=== PATIENT | male | born 1985 | race Caucasian/White ===

== ENCOUNTER 2024-11-24 08:33 | Emergency (ER) | payer BC, SELFPAY ==
[2024-11-24 08:38] VITALS: BP 134/84; PULSE 82; RESP 14; TEMP 36.7; O2SAT 98
--- NOTE | 2024-11-24 08:39 | ED.GENADUL_ITS ---
Discharge Plan Disposition Patient Disposition: Home Discharge Details Clinical Impression: Cellulitis of left leg Primary Care Provider: Mabel Suarez ED Provider: Robert Gee Home Meds and New Rx's Prescriptions: New cephalexin 500 mg capsule 500 mg PO QID 5 Days Qty: 20 0RF Continued lisinopril 20 mg Tablet 20 mg PO DAILY Discontinued allopurinol 100 mg Tablet 100 mg PO DAILY colchicine 0.6 mg Capsule 0.6 mg PO BID prednisone 10 mg tablet 10 mg PO DAILY Patient Comments: TAKE 4 TABLETS BY MOUTH DAILY FOR 3 DAYS, THEN 3 TABLETS DAILY FOR 3 DAYS, THEN 2 TABLETS DAILY FOR 3 DAYS, THEN 1 TABLET DAILY FOR 3 DAYS Discharge Instructions Instructions: Cellulitis (Skin Infection), Adult ED Additional Instructions: You were seen in the emergency department for your ankle pain and swelling. Your joint tap showed some signs of inflammation but no signs of an infected joint. We are concerned that you have a skin infection for which you are receiving antibiotics that you should take as directed. You may discontinue your allopurinol, your colchicine, and your prednisone. Please follow-up with the podiatry team in the next 1 to 2 weeks. As we discussed if you develop fevers cannot take your antibiotics as result of nausea or vomiting or if you have any other concerns please return to the emergency department. Stand Alone Forms: Work Release Referrals: Loulou Cordova DPM [[facility] STAFF PHYSICIAN] - HPI General Date/Time Provider Initiated Documentation: 11/24/24 08:39 . HPI Narrative: MDM This is an overall very well-appearing normothermic and not tachycardic 39-year-old male with left ankle effusion pain failing outpatient management for gout for which patient will undergo arthrocentesis in the emergency department following x-ray labs including inflammatory markers. Patient's left ankle is warm well-perfused so I am not concerned for critical limb ischemia so I do not feel the patient requires a CT angiogram with runoffs. No pain out of proportion to suggest necrotizing soft tissue infection. No fluctuance to suggest abscess. No erythema to suggest cellulitis. Patient has intact range of motion in his left ankle and no significant erythema nor history of IV drug use to suggest increased risk for septic joint. Patient is not septic appearing so I did not order blood cultures lactate nor treat empirically with IV antibiotics. 4:15 PM Please see procedure note and consult note from Dr. Carrera who performed left ankle arthrocentesis. Cell counts more consistent with inflammatory than septic joint. Given concern for cellulitis in the absence of any large significant ankle effusion patient was covered with cephalexin and will undergo podiatry follow-up in a week. Patient I discussed that he should return to emergency department if he develops nausea vomiting, take his antibiotics at the redness and swelling worsens or if develops any increasing pain. I provided the patient with a work note explaining that he was cleared to go to work if he was able but was also excuse from work if he did not feel well. He understood his return indications and was discharged with empiric trial of expectant outpatient management. HPI This is a 39-year-old male with history of gout presented emergency department via private vehicle with his daughter in setting of left ankle pain. Patient reports that approximately 10 days ago he saw his primary care provider. He has a history of gout and was treated for gouty arthritis exacerbation with 0.6 mg twice daily colchicine, 300 mg daily allopurinol and a prednisone taper. He is currently on 10 mg prednisone a day. He has had worsening pain despite treatment. He notes that this ankle pain is different than prior episodes of gouty arthritis which have generally affected his toes. He denies history of IV drug use. He has not had any fevers vomiting chest pain or shortness of breath. He works on his feet and has had increasing pain. He denies any specific trauma. He has been eating a diet consisting primarily of chicken recently. Exam General: Well-appearing in no acute distress speaking in complete sentences. Head: Normocephalic, atraumatic. Eye: Extraocular eye movements intact. No conjunctival injection. No scleral icterus. Ear, nose, mouth, throat: Grossly normal inspection. Normal voice, handling secretions normally. Neck: Trachea midline. Cardiovascular: Well-perfused distal extremities. Respiratory: Nonlabored respiration. Gastrointestinal: Nondistended abdomen. Musculoskeletal: Left ankle with swelling primarily over the medial malleolus. No fluctuance. No erythema. 4-5 strength dorsi and plantarflexion left foot secondary to pain. Intact PT and DP pulses. Left foot warm well-perfused. No fluctuance. No lacerations. Skin: Normal for age and race, grossly normal temperature and turgor. No acute rash. Neurologic: Alert and appropriate, no apparent acute deficits. Psychiatric: Mood and manner are appropriate. Grooming and personal hygiene are appropriate. Related Data Home Medications ?Medication ?Instructions ?Recorded ?Confirmed lisinopril 20 mg tablet 20 mg PO DAILY 08/01/20 11/24/24 cephalexin 500 mg capsule 500 mg PO QID 5 days #20 caps 11/24/24 Previous Rx's ?Medication ?Instructions ?Recorded cephalexin 500 mg capsule 500 mg PO QID 5 days #20 caps 11/24/24 Allergies Allergy/AdvReac Type Severity Reaction Status Date / Time doxycycline Allergy Unknown Skin Rash Unverified 11/24/24 08:45 lacosamide (From Vimpat) Allergy Unknown numbness Unverified 11/24/24 08:45 lamotrigine (From Lamictal) Allergy Unknown Skin Rash Unverified 11/24/24 08:45 Sulfa (Sulfonamide Allergy Unknown Anaphylaxsi Unverified 11/24/24 08:45 Antibiotics) s tetracycline Allergy Unknown Anaphylaxsi Unverified 11/24/24 08:45 s zonisamide (From Zonegran) Allergy Unknown Skin Rash Unverified 11/24/24 08:45 and Wheezing gabapentin AdvReac Mild Skin Rash Unverified 11/24/24 08:45 levetiracetam (From Keppra) AdvReac Mild Skin Rash Unverified 11/24/24 08:45 oxcarbazepine (From AdvReac Mild Topical Unverified 11/24/24 08:45 Trileptal) Irritation Procedure Abscess Drainage Provider that performed the procedure: Robert Gee Medical Decision Making Quality:SDOH Health Related Social Needs: 2 No Data to Display PFSH All Active Problems (Updated 11/24/24 @ 13:11 by Robert Gee MD) Cellulitis of left leg (Acute) Effusion of ankle joint, left (Acute) Cellulitis (Acute) Medical History Pain of toe of left foot Pain, joint, ankle, left Albuminuria Proteinuria Seizure Tuberous sclerosis syndrome Thoracic back pain Cervical radiculopathy Furuncle Chronic prostatitis CKD (chronic kidney disease), stage II Asthma Hypertensive disorder Symptomatic localization-related epilepsy KELSEY (obstructive sleep apnea) Insomnia Obesity Hyperphosphatemia Gout Hyperlipidemia Melanocytic nevus of scalp Surgical History History of craniotomy 07/11/2014- implant of intracranial electrodes [facility] [place]. Bishop Social History Smoking/Tobacco Use Status: Former Tobacco Use Smoking risk assessment performed?: Yes Alcohol Intake: current Alcohol Intake frequency: holidays/special occasions only Drug use: Never Substance use type: does not use Household members: spouse Housing: house What type of physical activity do you participate in: independent ambulation and irregular exercise Do you feel safe at home: Yes Do you feel safe in your relationship?: Yes POCUS Exam (ED) Limited Soft Tissue Exam DATE OF EXAM: 11/24/24 TIME OF EXAM: 10:10 PROVIDER THAT PERFORMED THE STUDY: Robert Gee LOCATION OF EXAM: Upper extremity/left REASON FOR EXAM: Pain and Redness Exam Complete DIFFERENTIAL DIAGNOSES: No signs of cobblestoning. No abscess. No obvious anechoic fluid collection.
[2024-11-24] MEDS: Acetaminophen 500 MG TAB 1000 MG PO (09:24)
[2024-11-24 09:45] LABS: Abs Immature Grans 0.09 10^3/uL (0.0-0.06); Absolute Basophil Count 0.04 10^3/uL (0.0-0.2); Absolute Eosinophil Count 0.06 10^3/uL (0.0-0.7); Absolute Lymphocyte Count 2.07 10^3/uL (1.2-3.4); Basophils % 0.3 %; Eosinophils % 0.5 %; HCT 42.2 % (40.0-50.0); HGB 14.1 g/dL (13.5-17.5); Immature Grans % 0.8 %; Lymphocytes % 17.6 %; MCH 29.9 pg (27.0-33.0); MCHC 33.4 % (32.0-36.0); MCV 89 fL (80-95); MPV 9.2 fL (8.0-11.0); Monocytes % 7.6 %; Neutrophils % 73.2 %; Platelet Count 296 10^3/uL (130-400); RBC 4.72 10^6/uL (4.36-5.78); RDW 12.7 % (11.8-14.1); RDW-SD 41.8 fL; WBC 11.77 10^3/uL (4.4-10.8)
[2024-11-24 09:47] LABS: ESR 7 mm/hr (0-15)
[2024-11-24 09:48] LABS: Lactate 2.3 mmol/L (<or=2.0)
[2024-11-24 09:49] LABS: Absolute Monocyte Count 0.89 10^3/uL (0.1-0.8); Absolute Neutrophil Count 8.62 10^3/uL (1.2-6.7)
--- NOTE | 2024-11-24 09:51 | DI.RAD_ITS ---
Exam(s) XR ANKLE LT COMPLETE EXAM: XR ANKLE LT COMPLETE CLINICAL HISTORY: Left ankle swelling TECHNIQUE: 2D digital imaging was performed of the left ankle. Three images were obtained. AP, lat eral and oblique views were obtained. COMPARISON: No exams were available for comparison FINDINGS: BONES: No acute fracture is present. No bony destructive lesion is seen. There is an enthesophyte at the posterior calcaneus. JOINTS:The ankle mortise is normally aligned. SOFT TISSUE: There is soft tissue swelling on the ankle, particularly laterally. IMPRESSION: 1. No acute fracture or dislocation. 2. Soft tissue swelling around the ankle, particularly laterally. DATA REPOSITORY: RADIATION DOSE DELIVERED:
[2024-11-24 10:00] LABS: Anion Gap 8.1 mmol/L (3-11); BUN 19 mg/dL (7-18); C-Reactive Protein 0.79 mg/dL (<or=0.5); CO2 30.9 mmol/L (21.0-32.0); Calcium 9.2 mg/dL (8.5-10.1); Chloride 103 mmol/L (98-107); Estimated GFR 98.18 (mL/min/1.73m2); Glucose 107 mg/dL (74-106); Potassium 3.8 mmol/L (3.5-5.1); Sodium 142 mmol/L (136-145)
[2024-11-24 12:11] LABS: Lab Add On Test DONE
[2024-11-24 12:20] LABS: Uric Acid 5.6 mg/dL (3.5-7.2)
--- NOTE | 2024-11-24 12:22 | POCOE_ITS ---
Date of service: 11/24/24 Time of Service: 11:45 Assessment and Plan Assessment and plan (1) Cellulitis: Status: Acute (2) Effusion of ankle joint, left: Status: Acute (3) Gout: (4) Pain, joint, ankle, left: Assessment and plan: Patient was seen in the ER today. He has had severe pain to the left ankle, medial to the medial malleolus for about 2 weeks now. He reports severe discomfort and inability to sleep due to pain. He has taken colchicine as well as a steroid pack which has not helped with the pain. His white count and CRP are slightly elevated today. Uric acid levels are pending at this time. I advised patient I am not sure this is a gout attack at this time is typically an acute gout attack will respond very well to a Medrol Dosepak. I am concerned about an infection. I did look at ultrasound images which were taken by Dr. Gee and there does not appear to be an obvious drainable abscess. Considering this, I discussed treatment with antibiotics with the patient today. However, considering he has had severe pain I would also consider and recommend attempting an aspiration of the fluid. Patient agreed. An aspiration was attempted as discussed above. Clear/yellow fluid was obtained from the point of maximal tenderness which is just medial to the medial malleolus at this time with some mixed blood. This was sent to pathology. Dressings were then applied with 4 x 4 and Coban for mild compression. I recommend antibiotics to cover for infection. Uric acid levels now noted to be 5.6, however, it is possible that these are falsely low due to acute gout. Will await final aspiration results. No further surgical intervention is planned at this time. Patient to follow-up in office within 1 week. History of Present Illness Narrative: 39-year-old male patient with left ankle swelling and pain for about 2 weeks. He states he went to his primary and was prescribed colchicine, allopurinol, steroid pack however pain persists. He says that pain is so severe that he has not been able to sleep in 1 week. He denies injury. Denies history of IV drug use. Denies insect bites, denies open wounds. Denies recent infections. States he has recently felt off-and-on cold however no fevers. Consults Consult date: 11/24/24 Requesting physician: Robert Gerard Review of Systems Cardiovascular Cardiovascular: Denies dyspnea and Denies dyspnea on exertion Respiratory Respiratory: Denies dyspnea and Denies dyspnea on exertion Musculoskeletal Musculoskeletal: Reports other (Left medial ankle pain) Integumentary/Breasts Comments: Very mild erythema, edema, some warmth noted to the medial ankle of the left just medial to the medial malleolus PFSH All Active Problems (Updated 11/24/24 @ 12:30 by Loulou Cordova DPM) Effusion of ankle joint, left (Acute) Cellulitis (Acute) Medical History Pain of toe of left foot Pain, joint, ankle, left Albuminuria Proteinuria Seizure Tuberous sclerosis syndrome Thoracic back pain Cervical radiculopathy Furuncle Chronic prostatitis CKD (chronic kidney disease), stage II Asthma Hypertensive disorder Symptomatic localization-related epilepsy KELSEY (obstructive sleep apnea) Insomnia Obesity Hyperphosphatemia Gout Hyperlipidemia Melanocytic nevus of scalp Surgical History History of craniotomy 07/11/2014- implant of intracranial electrodes [facility] [place] Dr. Bishop Social History Smoking/Tobacco Use Status: Former Tobacco Use Smoking risk assessment performed?: Yes Alcohol Intake: current Alcohol Intake frequency: holidays/special occasions only Drug use: Never Substance use type: does not use Household members: spouse Housing: house What type of physical activity do you participate in: independent ambulation and irregular exercise Do you feel safe at home: Yes Do you feel safe in your relationship?: Yes Exam Extrem Other: Left lower extremity physical exam: Derm: Just medial to the medial malleolus of the left ankle, there is very mild erythema, about 5 finger with diameter at the knee area of swelling, no obvious fluctuance or bogginess, no proximal streaking or lymphangitis, no area of open ulceration or bug bite appearing wound however with severe tenderness to palpation. MSK: No pain noted to the ankle joint medially or laterally with palpation or with range of motion. Some swelling noted medial to the medial malleolus as discussed above however, range of motion and strength appears intact along the course of the tendons medially. Vascular: Pulses are palpable to DP and PT Results Last Vital Signs Temp 98.0 F 11/24/24 08:38 Pulse 82 11/24/24 08:38 Resp 14 11/24/24 08:38 BP 134/84 11/24/24 08:38 Pulse Ox 98 11/24/24 08:38 Labs 11/24/24 09:36 11/24/24 09:36 Labs: Laboratory Results - last 24 hr 11/24/24 11/24/24 09:36 11:55 WBC 11.77 H RBC 4.72 Hgb 14.1 Hct 42.2 MCV 89 MCH 29.9 MCHC 33.4 RDW 12.7 Plt Count 296 MPV 9.2 Immature Gran % 0.8 Neutrophils % 73.2 Lymphocytes % 17.6 Monocytes % 7.6 Eosinophils % 0.5 Basophils % 0.3 Nucleated RBC % 0.0 Absolute Neutrophils 8.62 H Absolute Lymphocytes 2.07 Absolute Monocytes 0.89 H Absolute Eosinophils 0.06 Absolute Basophils 0.04 ESR 7 VBG Lactate 2.3 H* Sodium 142 Potassium 3.8 Chloride 103 Carbon Dioxide 30.9 Anion Gap 8.1 BUN 19 H Creatinine 1.0 Est GFR (CKD-EPI 2020) 98.18 Glucose 107 H Calcium 9.2 C-Reactive Protein 0.79 H Add-On Test Request DONE Procedures Other Procedure Description/Findings: Aspiration of fluid to the medial ankle: The medial ankle was cleansed with Hibiclens, 3 mL of 1% lidocaine plain was used preoperatively proximal to the point of maximal tenderness. Next, using an 18-gauge needle fluid was aspirated from the point of maximal tenderness, approximately 1 cc of clear fluid with some blood was aspirated. This was sent to pathology. The area was cleansed with Hibiclens again and a compressive dressing with 4 x 4 and Coban was then applied. Patient reported severe pain with the procedure and therefore another 10 mL of lidocaine plain was injected proximal to the point of entry.
[2024-11-24] MEDS: Lidocaine 2% Multi-Dose 20 ML VIAL IJ (12:36)
[2024-11-24] MEDS: Cephalexin 500 MG CAP PO (12:36)
[2024-11-24 12:38] LABS: Source Synovial
[2024-11-24 12:39] LABS: Crystals (BF) No Crystals seen
[2024-11-24 13:01] LABS: Clarity Cloudy; Nucleated Cells 10636 uL (0)
[2024-11-24 13:02] LABS: Mononuclear Cells 24 %; Polynuclear Cells 76 %
[2024-11-24 13:24] VITALS: BP 139/84; PULSE 57; RESP 18; O2SAT 96
== END 2024-11-24 13:24 | disposition home or self-care (01) ==
PROVIDERS: Emergency Provider Emergency Medicine; PCP Family Medicine
DX: L03.116 Cellulitis of left lower limb; I12.9 Hypertensive chronic kidney disease with stage 1 through stage 4 chronic kidney disease, or unspecified chronic kidney disease; N18.2 Chronic kidney disease, stage 2 (mild); E78.5 Hyperlipidemia, unspecified; M25.472 Effusion, left ankle; Z87.891 Personal history of nicotine dependence
CPT/HCPCS: 00123; 20605; 76882; 80048; 85652; 99283; 73610; 83605; 84550; 85025; 86140; 87070; 87205; 89051; 89060; J2003

== ENCOUNTER 2024-11-29 14:08 | Outpatient (CLI) | payer BC, SELFPAY ==
[2024-11-29 14:24] LABS: Abs Immature Grans 0.09 10^3/uL (0.0-0.06); Absolute Basophil Count 0.05 10^3/uL (0.0-0.2); Absolute Eosinophil Count 0.24 10^3/uL (0.0-0.7); Absolute Monocyte Count 1.15 10^3/uL (0.1-0.8); Absolute Neutrophil Count 6.59 10^3/uL (1.2-6.7); Basophils % 0.5 %; Eosinophils % 2.3 %; HGB 13.6 g/dL (13.5-17.5); Immature Grans % 0.9 %; Lymphocytes % 20.5 %; MCH 29.4 pg (27.0-33.0); MCHC 33.2 % (32.0-36.0); MCV 89 fL (80-95); MPV 9.1 fL (8.0-11.0); Monocytes % 11.3 %; Neutrophils % 64.5 %; Platelet Count 287 10^3/uL (130-400); RBC 4.62 10^6/uL (4.36-5.78); RDW 12.9 % (11.8-14.1); WBC 10.22 10^3/uL (4.4-10.8)
[2024-11-29 15:40] LABS: Uric Acid 6.1 mg/dL (3.5-7.2)
[2024-11-29 21:35] LABS: Rheumatoid Factor <8.6 IU/mL (<12.0)
[2024-11-30 11:37] LABS: Cyclic Citrullinated Peptide <2.5 U/mL (<5.0)
[2024-12-01 16:15] LABS: HLA-B27 Result Negative
[2024-12-02 14:35] LABS: ANA Interpretation Negative (Negative)
== END 2024-11-29 14:09 | disposition home or self-care (01) ==
LOC: LBO 14:09
PROVIDERS: PCP Family Medicine; Visit Provider Podiatrist
DX: M25.472 Effusion, left ankle (principal); E79.0 Hyperuricemia without signs of inflammatory arthritis and tophaceous disease
CPT/HCPCS: 36415; 86200; 86812; 84550; 85025; 86038; 86431

== ENCOUNTER 2024-12-14 02:42 | Outpatient (CLI) | payer BC, SELFPAY ==
--- NOTE | 2024-12-14 13:56 | DI.RAD_ITS ---
Exam(s) XR FOOT LT COMPLETE XR ANKLE LT COMPLETE EXAM: XR FOOT LT COMPLETE and XR ankle LT complete CLINICAL HISTORY: STJ and medial ankle pain,EFFUSION, M25.472. TECHNIQUE: 2D digital imaging was performed of the left ankle and foot. Six images were obtained. AP, oblique and lateral views were obtained. COMPARISON: CR XR ANKLE LT COMPLETE from 11/24/2024 FINDINGS: BONES: No acute fracture is present. No evidence of a healing fracture. No bony destructive lesion is seen. There is an enthesophyte at the posterior calcaneus. JOINTS: No dislocation present. There are mild degenerative changes seen in the foot and ankle. SOFT TISSUE: Normal. IMPRESSION: No acute abnormality is seen in the left ankle or foot. DATA REPOSITORY: RADIATION DOSE DELIVERED:
== END 2024-12-14 03:02 ==
LOC: DI 02:43
PROVIDERS: PCP Family Medicine; Visit Provider Podiatrist
DX: M10.9 Gout, unspecified (principal); M25.472 Effusion, left ankle
CPT/HCPCS: 73610; 73630

== ENCOUNTER 2024-12-16 08:51 | Emergency (ER) | payer BC, SELFPAY ==
[2024-12-16] VITALS (26 sets, daily range): BP systolic 111–143; BP diastolic 53–96; PULSE 52–69; RESP 16–17; O2SAT 95–98
--- NOTE | 2024-12-16 09:00 | RT.EKG_ITS ---
APPROVED REPORT Exam: Resting ECG Reason for Exam: dizzyness Patient Location: E HR:59 bpm ECG Measurements Heart Rate 59 AXIS HI 161 P 39 QRSd 104 QRS 11 QT 418 T 17 QTc 415 Conclusion Sinus bradycardia 59 normal axis no stemi
--- NOTE | 2024-12-16 09:30 | DI.CT_ITS ---
Exam(s) CT HEAD WO EXAM: CT HEAD WO CLINICAL HISTORY: Lightheadedness, recent head injury. TECHNIQUE: Imaging Protocol: Axial computed tomography images with coronal and sagittal reformatted images were created and reviewed COMPARISON: There are no priors for comparison. FINDINGS: Ventricles and Extra axial spaces: Normal in size and morphology for the patient's age. Hemorrhage: None. Cerebral parenchyma: Postsurgical changes are seen in the right occipital lobe. There also areas of encephalomalacia in the right occipital lobe. No evidence of an acute territorial infarct. Nonspeci fic parenchymal calcifications are present. Midline shift: None. Brainstem/Cerebellum: Normal. Calvarium: Normal. There is a right parietal occipital craniotomy. Visualized Paranasal sinuses/Mastoids: Mild mucosal thickening is seen in the maxillary sinuses. The remaining visualized paranasal sinuses are clear. The mastoid air cells are well pneumatized. Soft Tissues: Unremarkable. IMPRESSION: No acute intracranial process. RADIATION DOSE DELIVERED: 1,003.01mGy.cm Total DLP DATA REPOSITORY: All CT scans at this facility are submitted to the National Radiology Data Registry (NRDR) Dose Index Registry (DIR) with the [employer] ([employer]). RADIATION OPTIMIZATION: All CT scans at this facility use at least one of these dose optimization te chniques: automated exposure control; mA and/or kV adjustment per patient size (includes targeted exa ms where dose is matched to clinical indication); or iterative reconstruction.
--- NOTE | 2024-12-16 09:35 | ED.GENADUL_ITS ---
Discharge Plan Disposition Patient Disposition: Home Condition: Stable Discharge Details Clinical Impression: Near syncope Primary Care Provider: Mabel Suarez ED Provider: Sanam Estrada Home Meds and New Rx's Prescriptions: Continued lisinopril 20 mg Tablet 40 mg PO DAILY allopurinol 300 mg tablet 300 mg PO DAILY Patient Comments: TAKE 1 TABLET BY MOUTH ONCE DAILY colchicine 0.6 mg tablet 0.6 mg PO BID PRN Patient Comments: TAKE 1 TABLET BY MOUTH TWICE DAILY Discharge Instructions Instructions: Near Fainting (DC) Additional Instructions: At this time and the workup is negative, no evidence for heart attack, infection UTI no evidence for intracranial bleed. Your labs are largely unremarkable, you may be slightly dehydrated your magnesium was slightly low which was replenished with a oral supplement. You are given IV fluids while you are here. Please increase oral fluids. Return to the ER if this reoccurs or if you faint. Return for any chest pain shortness of breath fever vomiting or concerns. Follow up with primary care provider in 3-5 days. Return to ED sooner if any worsening or concerns. Thank you for allowing us to care for you today Stand Alone Forms: Work Release Referrals: Mabel Suarez [Primary Care Provider] - 5 days HPI General Mode of arrival: ambulatory . Date/Time Provider Initiated Documentation: 12/16/24 08:54 . Limitations to Documentation: no limitations . Information obtained by: patient, RN notes reviewed and old records reviewed . HPI Narrative: 39-year-old male presents to the ER with chief complaint of episode of near syncope. 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 Episode lasted for approximately 5 to 10 minutes after that is subsided. He reports he has a slight headache no other complaints. The dizziness and lightheadedness have not resolved. He does endorse hitting his head on Friday night. Does have a small scab to the right parietal scalp. Denies any nausea vomiting diarrhea. No chest pain. Denies any numbness or tingling or weakness. Past medical history includes hypertension, cellulitis to his left foot which he recently finished antibiotics for, gout, history of seizures chronic kidney disease stage II, asthma hyperlipidemia. He does have a history of a craniotomy in 2013 with implanted electrodes at [facility]. Related Data Home Medications ?Medication ?Instructions ?Recorded ?Confirmed lisinopril 20 mg tablet 40 mg PO DAILY 08/01/20 12/16/24 allopurinol 300 mg tablet 300 mg PO DAILY 12/16/24 12/16/24 colchicine 0.6 mg tablet 0.6 mg PO BID PRN 12/16/24 12/16/24 Allergies Allergy/AdvReac Type Severity Reaction Status Date / Time doxycycline Allergy Unknown Skin Rash Unverified 11/29/24 15:11 lacosamide (From Vimpat) Allergy Unknown numbness Unverified 11/29/24 15:11 lamotrigine (From Lamictal) Allergy Unknown Skin Rash Unverified 11/29/24 15:11 Sulfa (Sulfonamide Allergy Unknown Anaphylaxsi Unverified 11/29/24 15:11 Antibiotics) s tetracycline Allergy Unknown Anaphylaxsi Unverified 11/29/24 15:11 s zonisamide (From Zonegran) Allergy Unknown Skin Rash Unverified 11/29/24 15:11 and Wheezing gabapentin AdvReac Mild Skin Rash Unverified 11/29/24 15:11 levetiracetam (From Keppra) AdvReac Mild Skin Rash Unverified 11/29/24 15:11 oxcarbazepine (From AdvReac Mild Topical Unverified 11/29/24 15:11 Trileptal) Irritation General Stated Complaint: Dizzy/Sync MONTEZ: 3 Review of Systems All systems reviewed & are unremarkable except as noted in HPI and below Constitutional Constitutional: Reports as per HPI and Reports headache(s) ENT Ears, Nose, Mouth, and Throat: Reports headache(s) Neurologic Neurologic: Reports headache(s) Exam Narrative Exam Narrative: Constitutional: Alert and oriented x3. Appears stated age. Normal body habitus. Head: Normocephalic, small healing scab which appears superficial noted to the right parietal scalp. Eyes: Pupils PERRL, Red reflex noted, EOM's intact. Eyelids symmetrical without lesions, discharge, or swelling. ENT: Bilateral TM's WNL, External ear normal to inspection, no mastoid TTP, swelling, or erythema, Nasal turbinates WNL, no nasal discharge. Normal dentition, Posterior pharynx WNL, no exudate. Chest: RRR, Normal S1, S2, distal pulses intact. Resp: Lungs clear to auscultation bilaterally, no wheezes, rales, or rhonchi. Abdomen: Soft, non-distended, Normoactive bowel sounds all 4 quads. Musculoskeletal: Normal gait, Moves all 4 extremities without difficulty. Skin: No suspicious rashes or lesions. Capillary refill less than 2 sec. Neurologic: Cranial nerves II-XII intact. Alert and oriented x 3. Motor: No deficits noted. Sensory: Intact bilaterally all 4 extremities. Hematologic/Lymphatic: No ecchymosis, no lymphadenopathy. Course Vital Signs Vital signs: Vital Signs Pulse 69 12/16/24 09:14 Respiratory Rate 17 12/16/24 09:14 Blood Pressure 116/53 L 12/16/24 09:14 Pulse Oximetry 97 12/16/24 09:14 Pulse 69 12/16/24 09:14 Respiratory Rate 16 12/16/24 09:24 Respiratory Effort Normal 12/16/24 09:24 Respiratory Depth Normal 12/16/24 09:24 Respiratory Pattern Normal 12/16/24 09:24 Blood Pressure 116/53 L 12/16/24 09:14 Blood Pressure Position Sitting 12/16/24 09:14 Pulse Oximetry 97 12/16/24 09:14 Oxygen Delivery Method Room Air 12/16/24 09:14 Oxygen Flow Rate 0 12/16/24 09:14 Pain Level 2 12/16/24 09:14 Medical Decision Making 39-year-old male presents to the ER with chief complaint of episode of near syncope. 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 Episode lasted for approximately 5 to 10 minutes after that is subsided. He reports he has a slight headache no other complaints. The dizziness and lightheadedness have not resolved. He does endorse hitting his head on Friday night. Does have a small scab to the right parietal scalp. Denies any nausea vomiting diarrhea. No chest pain. Denies any numbness or tingling or weakness. Past medical history includes hypertension, cellulitis to his left foot which he recently finished antibiotics for, gout, history of seizures chronic kidney disease stage II, asthma hyperlipidemia. He does have a history of a craniotomy in 2013 with implanted electrodes at [facility]. Workup ordered including CBC CMP troponin, head CT EKG was reviewed by Dr. Cedeño and myself ER attending, no old EKG available. 2 serial troponins within normal limits, no leukocytosis hemoglobin 12.6 he matocrit 37.3, BUN 19 creatinine 1.1 magnesium slightly low at 1.7, urinalysis shows trace ketones 100 protein. No evidence for UTI. Head CT within normal limits. History of craniotomy. No acute intracerebral hemorrhage or evidence for infarct. Discussed results with patient who verbalized understanding. Discussed tricked return instructions and follow-up care patient discharged in hemodynamically stable condition. This text was generated using [employer] system, please disregard any oddities of phrase or misspellings. Medical Records Medical records reviewed: Yes I reviewed the patient's medical records. Lab Data Lab results reviewed: Yes I reviewed the patient's lab results. Labs: Laboratory Tests Range/Units 12/16/24 12/16/24 12/16/24 09:32 10:42 10:50 WBC (4.4-10.8) 10^3/uL 6.45 RBC (4.36-5.78) 10^6/uL 4.24 L Hgb (13.5-17.5) g/dL 12.6 L Hct (40.0-50.0) % 37.3 L MCV (80-95) fL 88 MCH (27.0-33.0) pg 29.7 MCHC (32.0-36.0) % 33.8 RDW (11.8-14.1) % 12.5 Plt Count (130-400) 10^3/uL 258 MPV (8.0-11.0) fL 9.2 Immature Gran % % 0.3 Neutrophils % % 69.4 Lymphocytes % % 18.9 Monocytes % % 9.0 Eosinophils % % 1.9 Basophils % % 0.5 Nucleated RBC % (0.0-0.3) % 0.0 Absolute Neutrophils (1.2-6.7) 10^3/uL 4.48 Absolute Lymphocytes (1.2-3.4) 10^3/uL 1.22 Absolute Monocytes (0.1-0.8) 10^3/uL 0.58 Absolute Eosinophils (0.0-0.7) 10^3/uL 0.12 Absolute Basophils (0.0-0.2) 10^3/uL 0.03 Sodium (136-145) mmol/L 143 Potassium (3.5-5.1) mmol/L 4.0 Chloride (98-107) mmol/L 106 Carbon Dioxide (21.0-32.0) mmol/L 27.9 Anion Gap (3-11) mmol/L 9.1 BUN (7-18) mg/dL 19 H Creatinine (0.70-1.30) mg/dL 1.1 Est GFR (CKD-EPI 2020) (mL/min/1.73m2) 87.57 Glucose (74-106) mg/dL 102 Calcium (8.5-10.1) mg/dL 9.2 Magnesium (1.8-2.4) mg/dL 1.7 L Total Bilirubin (0.2-1.0) mg/dL 0.5 AST (15-37) U/L 16 ALT (16-63) U/L 36 Alkaline Phosphatase (46-116) U/L 64 Troponin I (<or=76) ng/L < 4 5 Total Protein (6.4-8.2) g/dL 7.1 Albumin (3.4-5.0) g/dL 3.6 Urine Color (Yellow) Yellow Urine Clarity (Clear) Clear Urine pH (5-8) 5.[address] (1.005-1.025) >= 1.030 H Urine Protein (Neg-Trace) mg/dL 100 H Urine Ketones (Negative) mg/dL Trace H Urine Blood (Negative) Negative Urine Nitrite (Negative) Negative Urine Bilirubin (Negative) Negative Urine Urobilinogen (Up to 0.2) mg/dL 0.2 Ur Leukocyte Esterase (Negative) Negative Urine RBC (0-2) HPF 0-2 Urine WBC (0-5) HPF Negative Ur Epithelial Cells (Negative) HPF Few Urine Crystals (Negative) HPF Negative Urine Bacteria (Negative) HPF Rare Urine Casts (Negative) LPF 3-5 Fine Granular Urine Mucus (Negative) Heavy Urine Other (Negative) Negative Ur Culture Indicated? No Urine Glucose (Negative) mg/dL Negative Range/Units 12/16/24 12:34 WBC (4.4-10.8) 10^3/uL RBC (4.36-5.78) 10^6/uL Hgb (13.5-17.5) g/dL Hct (40.0-50.0) % MCV (80-95) fL MCH (27.0-33.0) pg MCHC (32.0-36.0) % RDW (11.8-14.1) % Plt Count (130-400) 10^3/uL MPV (8.0-11.0) fL Immature Gran % % Neutrophils % % Lymphocytes % % Monocytes % % Eosinophils % % Basophils % % Nucleated RBC % (0.0-0.3) % Absolute Neutrophils (1.2-6.7) 10^3/uL Absolute Lymphocytes (1.2-3.4) 10^3/uL Absolute Monocytes (0.1-0.8) 10^3/uL Absolute Eosinophils (0.0-0.7) 10^3/uL Absolute Basophils (0.0-0.2) 10^3/uL Sodium (136-145) mmol/L Potassium (3.5-5.1) mmol/L Chloride (98-107) mmol/L Carbon Dioxide (21.0-32.0) mmol/L Anion Gap (3-11) mmol/L BUN (7-18) mg/dL Creatinine (0.70-1.30) mg/dL Est GFR (CKD-EPI 2020) (mL/min/1.73m2) Glucose (74-106) mg/dL Calcium (8.5-10.1) mg/dL Magnesium (1.8-2.4) mg/dL Total Bilirubin (0.2-1.0) mg/dL AST (15-37) U/L ALT (16-63) U/L Alkaline Phosphatase (46-116) U/L Troponin I (<or=76) ng/L Cancelled Total Protein (6.4-8.2) g/dL Albumin (3.4-5.0) g/dL Urine Color (Yellow) Urine Clarity (Clear) Urine pH (5-8) Ur Specific [address] (1.005-1.025) Urine Protein (Neg-Trace) mg/dL Urine Ketones (Negative) mg/dL Urine Blood (Negative) Urine Nitrite (Negative) Urine Bilirubin (Negative) Urine Urobilinogen (Up to 0.2) mg/dL Ur Leukocyte Esterase (Negative) Urine RBC (0-2) HPF Urine WBC (0-5) HPF Ur Epithelial Cells (Negative) HPF Urine Crystals (Negative) HPF Urine Bacteria (Negative) HPF Urine Casts (Negative) LPF Urine Mucus (Negative) Urine Other (Negative) Ur Culture Indicated? Urine Glucose (Negative) mg/dL Quality:SDOH Health Related Social Needs: No Data to Display PFSH All Active Problems (Updated 12/16/24 @ 11:49 by Sanam Estrada NP) Near syncope (Acute) Pain in joint, foot, left (Acute) Cellulitis of left leg (Acute) Effusion of ankle joint, left (Acute) Cellulitis (Acute) Medical History Pain of toe of left foot Pain, joint, ankle, left Albuminuria Proteinuria Seizure Tuberous sclerosis syndrome Thoracic back pain Cervical radiculopathy Furuncle Chronic prostatitis CKD (chronic kidney disease), stage II Asthma Hypertensive disorder Symptomatic localization-related epilepsy KELSEY (obstructive sleep apnea) Insomnia Obesity Hyperphosphatemia Gout Hyperlipidemia Melanocytic nevus of scalp Surgical History History of craniotomy 07/11/2014- implant of intracranial electrodes [facility] Dr. Bishop Social History Smoking/Tobacco Use Status: Former Tobacco Use Smoking risk assessment performed?: Yes Alcohol Intake: current Alcohol Intake frequency: holidays/special occasions only Drug use: Never Substance use type: does not use Household members: spouse Housing: house What type of physical activity do you participate in: independent ambulation and irregular exercise Do you feel safe at home: Yes Do you feel safe in your relationship?: Yes
[2024-12-16 09:40] LABS: Abs Immature Grans 0.02 10^3/uL (0.0-0.06); Absolute Basophil Count 0.03 10^3/uL (0.0-0.2); Absolute Eosinophil Count 0.12 10^3/uL (0.0-0.7); Absolute Lymphocyte Count 1.22 10^3/uL (1.2-3.4); Absolute Monocyte Count 0.58 10^3/uL (0.1-0.8); Absolute Neutrophil Count 4.48 10^3/uL (1.2-6.7); Basophils % 0.5 %; Eosinophils % 1.9 %; HCT 37.3 % (40.0-50.0); HGB 12.6 g/dL (13.5-17.5); Immature Grans % 0.3 %; Lymphocytes % 18.9 %; MCH 29.7 pg (27.0-33.0); MCHC 33.8 % (32.0-36.0); MCV 88 fL (80-95); MPV 9.2 fL (8.0-11.0); Neutrophils % 69.4 %; Platelet Count 258 10^3/uL (130-400); RBC 4.24 10^6/uL (4.36-5.78); RDW 12.5 % (11.8-14.1); RDW-SD 40.2 fL; WBC 6.45 10^3/uL (4.4-10.8)
[2024-12-16 09:58] LABS: ALT 36 U/L (16-63); AST 16 U/L (15-37); Albumin 3.6 g/dL (3.4-5.0); Alkaline Phosphatase 64 U/L (46-116); Anion Gap 9.1 mmol/L (3-11); BUN 19 mg/dL (7-18); Bilirubin, Total 0.5 mg/dL (0.2-1.0); CO2 27.9 mmol/L (21.0-32.0); CREATININE 1.1 mg/dL (0.70-1.30); Calcium 9.2 mg/dL (8.5-10.1); Chloride 106 mmol/L (98-107); Estimated GFR 87.57 (mL/min/1.73m2); Glucose 102 mg/dL (74-106); Magnesium 1.7 mg/dL (1.8-2.4); Sodium 143 mmol/L (136-145); Total Protein 7.1 g/dL (6.4-8.2)
[2024-12-16 10:00] LABS: Troponin I < 4 ng/L (<or=76)
[2024-12-16] MEDS: Normal Saline 1,000 ML 1000 ML IV (10:41)
[2024-12-16 11:02] LABS: Bilirubin Negative (Negative); Blood Negative (Negative); Clarity Clear (Clear); Glucose Negative (Negative); Ketones Trace mg/dL (Negative); Leukocyte Esterase Negative (Negative); Nitrite Negative (Negative); Specific Gravity >= 1.030 (1.005-1.025); Urobilinogen 0.2 mg/dL (Up to 0.2); pH 5.5 (5-8)
[2024-12-16 11:10] LABS: Troponin I 5 ng/L (<or=76)
[2024-12-16 11:11] LABS: WBC Negative HPF (0-5)
[2024-12-16 11:12] LABS: Bacteria Rare HPF (Negative); C & S Indicated? No; Casts 3-5 Fine Granular LPF (Negative); Crystals Negative HPF (Negative); Epithelial Cells Few HPF (Negative); Mucus Heavy (Negative); Other Cells Negative (Negative); RBC 0-2 HPF (0-2)
[2024-12-16] MEDS: Magnesium Oxide 400 MG TAB PO (11:36)
== END 2024-12-16 11:59 | disposition home or self-care (01) ==
PROVIDERS: Emergency Provider Registered Nurse Emergency; PCP Family Medicine
DX: R55 Syncope and collapse (principal); G93.89 Other specified disorders of brain; I12.9 Hypertensive chronic kidney disease with stage 1 through stage 4 chronic kidney disease, or unspecified chronic kidney disease; N18.2 Chronic kidney disease, stage 2 (mild); E78.5 Hyperlipidemia, unspecified
CPT/HCPCS: 36415; 80053; 93005; 99284; 70450; 81003; 81015; 83735; 84484; 85025; 93010